=== PATIENT | female | born 1980 | race Caucasian/White ===

== ENCOUNTER 2020-08-12 17:54 | Emergency (ER) | payer OTHER ==
[2020-08-12] MEDS ORDERED: HYDROCODON-ACE1 EAC2 PO (18:36)
[2020-08-12] MEDS ORDERED: NEURONTIN300 MG PO (18:36)
== END 2020-08-12 19:21 | disposition home or self-care (01) ==
LOC: FER 17:54
DX: M54.12 Radiculopathy, cervical region (principal); J45.909 Unspecified asthma, uncomplicated; Z88.0 Allergy status to penicillin; Z88.1 Allergy status to other antibiotic agents; Z88.6 Allergy status to analgesic agent
CPT/HCPCS: 96372; 99283; J1040; J1885